=== PATIENT | female | born 1990 | race Caucasian/White ===

== ENCOUNTER 2016-10-21 12:19 | Emergency (ER) | payer OTHER ==
[~2016-10-21] VITALS: Ht 162.6 cm; Wt 63.0 kg
[2016-10-21 12:30] VITALS: TEMP 36.9; Ht 162.6 cm; Wt 63.0 kg
--- NOTE | 2016-10-21 12:56 | EMERGENCY ROOM VISIT NOTE ---
History Report prepared by Osman: Ellie Genao Under the Supervision of: Dr. Juan Carlos Jonas M.D. First contact with patient: 12:45 Chief Complaint: BITE Stated Complaint: BITE ON R HAND History of Present Illness The patient is a 25 year old female who presents to the Emergency Room with complaints of persistent right arm swelling that began yesterday. The patient states that yesterday she noticed an insect bite to her right arm, but is unsure what bit her. She states that she was outside the day she was bit, but denies being near the [place]. The patient states that the area is itchy, sore and tingling. The patient states that she has been using hydrocortisone cream on the area. She denies any fever. The patient reports that her tetanus is up to date. Source of History: patient Onset: yesterday Position: arm (right) Quality: other (sore, swelling, itchy, tingling) Timing: other (persistent) Modifying Factors (Relieving): other (hydrocortisone cream) Associated Symptoms: No fevers Review of Systems All systems have been listed, reviewed, and are negative other than those previously mentioned. Please see Additional Medical History Sheet. Past Medical & Surgical Medical Problems: (1) No significant medical problems Family History No pertinent family history Social History Smoking Status: Never Smoker Marital Status: single Housing Status: lives with family Occupation Status: employed Current/Historical Medications Scheduled Cephalexin Monohydrate (Keflex), 500 MG PO QID Allergies Coded Allergies: No Known Allergies (Unverified , 10/21/16) Physical Exam Vital Signs Date Time Temp Pulse Resp B/P (MAP) Pulse Ox O2 Delivery O2 Flow Rate FiO2 10/21/16 13:15 67 18 119/69 100 10/21/16 12:30 36.9 62 18 134/74 100 Physical Exam GENERAL: Patient awake, alert, oriented x 3. Patient follows commands. Patient does not appear toxic. Patient is adequately hydrated and well- nourished. SKIN: Erythema extending from the right volar aspect of wrist up almost to the antecubital fossa. Patient ahs 2 red riddle on volar surface just proximal to the wrist. HEENT: Normal head, pupils equal, reactive to light and accommodation. Ears normal. Oral cavity and posterior pharynx appear normal. Neck: Without adenopathy, no neck vein distention. LUNGS: Clear to auscultation. No wheezes, no rales, no rhonchi. HEART: No murmurs. No gallops. No rubs ABDOMEN: Soft nontender. EXTREMITIES: Erythema extending from the right volar aspect of wrist up almost to the antecubital fossa. Patient ahs 2 red riddle on volar surface just proximal to the wrist. NEUROLOGIC: Cranial nerves II-XII within normal limits. No gross motor sensory function deficits. Medical Decision & Procedures Medications Administered Medications (Trade) Dose Ordered Sig/Patrick Route Start Time Stop Time Status Last Admin Dose Admin Cephalexin Monohydrate (Keflex Cap) 500 mg NOW ONCE PO 10/21/16 13:15 10/21/16 13:16 DC 10/21/16 13:10 500 MG ED Course 1245: Past medical records reviewed. The patient was evaluated in room B4B. A complete history and physical examination was performed. 1303: I reevaluated the patient and she is doing well. I discussed the treatment plan with her and she verbalized complete understanding and agreement. She is ready to go home shortly. 1315: Ordered Keflex Cap 500 mg PO. Medical Decision Nurses notes reviewed. Medical history sheet reviewed. Differential diagnosis includes but is not limited to: insect sting/bite, early cellulitis, lymphangitis, Toxicodendron dermatitis. Medication Reconciliation: I attest that I have personally reviewed the patient' s current medication list. Blood pressure Screening: Patient was found to have normal blood pressure on screening and does not require follow up. The patient has no recall of contact with any plants, animals or insects. She now complains of itching and some swelling with some tingling in her hand. She does not have pain. Exam is most consistent with a dermatitis although she does have 2 small riddle near her wrist. The erythema extends up toward her antecubital fossa. She has no axillary adenopathy or adenopathy at the elbow. She has no fever. The patient has been using hydrocortisone which does help with itching. In light of the extension of the erythema I feel that it is appropriate to start her on antibiotics. This does not look like a typical spider bite. Patient will need to be followed within the next 24-48 hours. The patient was given 1 dose of Keflex here and prescription for the same. Impression Primary Impression: Cellulitis Scribe Attestation The scribe's documentation has been prepared under my direction and personally reviewed by me in its entirety. I confirm that the note above accurately reflects all work, treatment, procedures, and medical decision making performed by me. Departure Information Dispostion Home / Self-Care Prescriptions Cephalexin Monohydrate (Keflex) 500 Mg Cap 500 MG PO QID, #20 CAP Prov: Juan Carlos Jonas M.D. 10/21/16 Referrals Nidhi Stout M.D. (PCP) Forms HOME CARE DOCUMENTATION FORM, IMPORTANT VISIT INFORMATION Patient Instructions My [facility] Additional Instructions 500 mg of Keflex 4 times a day. Recheck here or with your family physician within the next 24-48 hours. Continue to use hydrocortisone as needed for itching.
[2016-10-21] MEDS ORDERED: CEPH500C PO (13:10)
[2016-10-21 13:15] VITALS: BP 119/69; PULSE 67; O2SAT 100
[2016-10-21] MEDS ORDERED: CEPHALEXIN MONOHYDRATE 250 MG CAP PO ONE (13:15)
== END 2016-10-21 13:15 | disposition home or self-care (01) ==
LOC: C.EDB 12:20
DX: L03.113 Cellulitis of right upper limb (principal)